=== PATIENT | male | born 1990 | race Caucasian/White ===

== ENCOUNTER 2017-01-04 09:25 | Emergency (ER) | payer BC ==
[2017-01-04 09:42] VITALS: BP 121/75
[2017-01-04] MEDS ORDERED: diphenhydrAMINE 50 MG Cap PO ONE (09:44)
[2017-01-04] MEDS ORDERED: predniSONE 20 MG Tab PO ONE (09:44)
--- NOTE | 2017-01-04 09:50 | EDM.PDOC ---
ED HPI Allergic Reaction - General Chief Complaint: Allergic Reaction Stated Complaint: ALLERGIC REACTION, ITCHY Time Seen by Provider: 01/04/17 09:45 Source of Information: Reports: Patient, RN History Limitations: Reports: No limitations - History of Present Illness INITIAL COMMENTS - FREE TEXT/NARRATIVE: C/O sunburn yesterday, and today he woke up with skin on the back and shoulders very itchy and inflamed. Denies blisters, cough, or wheezing. Symptom Onset Date: 01/04/17 Timing/Duration: Reports: Constant Location, Skin: Reports: back Associated Symptoms: Reports: no other symptoms Improves with: Reports: None Worsens with: Reports: None Suspected Etiology: Reports: other (sun) Recent Medical Care: no - Related Data Allergies/ADRs: Allergies Allergy/AdvReac Type Severity Reaction Status Date / Time No Known Allergies Allergy Verified 01/04/17 09:46 Home Meds: Home Meds . [No Known Home Meds] 01/04/17 [History] Past Medical History - Past Health History Medical/Surgical History: Denies Medical/Surgical History Social & Family History - Family History Family Medical History: Noncontributory - Living Situation & Occupation Living situation: Reports: , with family Occupation: employed ED ROS ALLERGIC REACTION - Review of Systems Review Of Systems: ROS reveals no pertinent complaints other than HPI. ED EXAM GENERAL NO PERIP PULSE - Physical Exam Exam: See Below Exam Limited By: No limitations General Appearance: alert, WD/WN, no apparent distress Throat/Mouth: Normal voice, No airway compromise Head: atraumatic, normocephalic Neck: normal inspection Respiratory/Chest: no respiratory distress Back Exam: normal inspection, full range of motion Extremities: normal inspection Neurological: alert, oriented, no motor/sensory deficits Psychiatric: normal mood Skin Exam: Warm, Dry, Intact, Erythema (on back of neck, back, shoulders with mild inflammation) Course - Vital Signs Last Recorded V/S: Last Vital Signs Temp 36.4 C 01/04/17 09:41 Pulse 90 01/04/17 09:41 Resp 16 01/04/17 09:41 BP 121/75 01/04/17 09:41 Pulse Ox 99 01/04/17 09:41 - Orders/Labs/Meds Meds: Medications Discontinued Medications Generic Name Dose Route Start Last Admin Trade Name Freq PRN Reason Stop Dose Admin Diphenhydramine HCl 50 mg 01/04/17 09:44 01/04/17 09:58 Benadryl PO 01/04/17 09:45 50 mg ONETIME ONE Administration Prednisone 60 mg 01/04/17 09:44 01/04/17 09:58 Prednisone PO 01/04/17 09:45 60 mg ONETIME ONE Administration Departure - Departure Time of Disposition: 09:47 Disposition: Home, Self-Care 01 Condition: good Clinical Impression: Sunburn, Sun allergy Instructions: Sunburn, [id number] Forms: ED Department Discharge Additional Instructions: Rx: Prednisone 20mg Take over the counter Zyrtec 10mg one tablet twice a day for 5 days. Use over the counter Aloe or Aloe with zinc, apply to area of sunburn 2 to 3 times daily. Follow up in clinic for recheck if not improved in 4 to 5 days.
== END 2017-01-04 10:00 | disposition home or self-care (01) ==
LOC: DL.ED 09:25
DX: L55.9 Sunburn, unspecified (principal); L53.9 Erythematous condition, unspecified
CPT/HCPCS: 99283; A9270; Q0163